=== PATIENT | female | born 1940 | race Caucasian/White ===

== ENCOUNTER 2023-03-24 07:17 | Day surgery (SDC) | payer OTHER, BC ==
[2023-03-20 09:48] VITALS: BMI 24.5
[2023-03-24] MEDS ORDERED: BACITRACIN/POLYMYXIN OPH OINT 3.5 GM TUBE ONE (07:25)
[2023-03-24] MEDS ORDERED: BSS (NA/CA/MG/K) BALANCED SALT SOLUTION OPHTH SOLN 15 ML BOTTLE ONE (07:25)
[2023-03-24] MEDS ORDERED: EPINEPHrine/PF 1 MG/1 ML (1:1,000) AMPULE ONE (07:25)
[2023-03-24] MEDS ORDERED: EPI-SHUGARCAINE (EPINEPHRINE 0.025% & LIDOCAINE-PF 0.75%) 4ML ONE (07:25)
[2023-03-24] MEDS ORDERED: TETRACAINE 0.5% OPHTH SOLN 2 ML BOTTLE ONE ×2 (07:25→07:27)
[2023-03-24] MEDS ORDERED: BETAXOLOL HCL 0.25% OPHTHALMIC 10 ML DROPSBTL ONE (07:25)
[2023-03-24] MEDS ORDERED: POVIDONE-IODINE 5% OPHTHALMIC PREP 30 ML SOLUTION ONE (07:25)
[2023-03-24] MEDS ORDERED: NEO/POLYMYX B SULF/DEXAMETH OPHTHALMIC 5ML BOTTLE ONE (07:26)
[2023-03-24] MEDS ORDERED: ACETYLCHOLINE 1:100 INTRA-OCUL 20 MG/2 ML KIT ONE (07:26)
[2023-03-24] MEDS ORDERED: OFLOXACIN 0.3% OPHTHALMIC SOLUTION 5 ML BOTTLE ONE (07:37)
[2023-03-24] MEDS ORDERED: CYCLOPENTOLATE HCL 1% OPHTH SOLN 2 ML BOTTLE ONE (07:37)
[2023-03-24] MEDS ORDERED: PHENYLEPHRINE 2.5% OPTHALMIC DROP 2ML BOTTLE ONE (07:37)
[2023-03-24] MEDS ORDERED: KETOROLAC TROMETHAMINE 0.5% EYE DROP 1 DROP DROPS ONE (07:37)
[2023-03-24] MEDS ORDERED: TROPICAMIDE 1% OPHTH SOLN 15 ML BOTTLE ONE (07:37)
[2023-03-24] MEDS: PHENYLEPHRINE 2.5% OPHTH SOLN 15 ML BOTTLE OD SCH ×3 (07:55→08:05)
[2023-03-24] MEDS: CYCLOPENTOLATE HCL 1% OPHTH SOLN 2 ML BOTTLE OD SCH ×3 (07:55→08:05)
[2023-03-24] MEDS: OFLOXACIN 0.3% OPHTHALMIC SOLUTION 5 ML BOTTLE OD SCH ×3 (07:55→08:05)
[2023-03-24] MEDS: KETOROLAC TROMETHAMINE 0.5% EYE DROP 1 DROP DROPS OD SCH ×3 (07:55→08:05)
[2023-03-24] MEDS: TROPICAMIDE 1% OPHTH SOLN 15 ML BOTTLE OD SCH ×3 (07:55→08:05)
[2023-03-24 08:01] VITALS: RESP 16
[2023-03-24] MEDS ORDERED: LACTATED RINGERS SOLUTION 1,000 ML IV SCH (09:30)
[2023-03-24] MEDS ORDERED: MIDAZOLAM HCL 2 MG/2 ML SINGLE DOSE VIAL ONE (09:35)
[2023-03-24] MEDS ORDERED: ACETAMINOPHEN 325 MG TABLET (FP) PO PRN (10:10)
[2023-03-24 10:55] VITALS: BP 150/65; PULSE 75; TEMP 98
== END 2023-03-24 11:00 | disposition home or self-care (01) ==
LOC: FASU 07:17
PROVIDERS: ATTEND Ophthalmology
PROC: 08RJ3JZ Replacement of Right Lens with Synthetic Substitute, Percutaneous Approach (ICD-10-PCS; principal; 2023-03-24 09:44)
DX: H25.11 Age-related nuclear cataract, right eye (principal)
CPT/HCPCS: 66984; V2632